=== PATIENT | female | born 1980 | race African-American/Black ===

== ENCOUNTER 2017-11-13 00:58 | Emergency (ER) | payer SELFPAY ==
[~2017-11-13] VITALS: Ht 165.1 cm; Wt 77.1 kg
[2017-11-13 01:22] VITALS: BP 146/95
--- NOTE | 2017-11-13 01:29 | ED CARDIAC/CP/PALPITATIONS ---
History of Present Illness General Chief Complaint: General Adult Stated Complaint: RIGHT SIDE RIBS PAIN Source: patient, family, old records Exam Limitations: no limitations Vital Signs & Intake/Output Vital Signs & Intake/Output Vital Signs Date Time Temp Pulse Resp B/P B/P Pulse O2 O2 Flow FiO2 Mean Ox Delivery Rate 11/13 0122 97.0 101 20 146/95 96 Room Air Allergies Uncoded Allergies: Allergy Other N Med Allergies N Triage Note: PT REPORTS SHE WAS BENDING DOWN TO [employer] AN OBJECT OFF OF THE FLOOR AND FELL INTO THE CORNER OF A TABLE STRIKING R RIBS. PT REPORTS PAIN IS CONSTANT AND WORSE WITH PALPATION AND MOVEMENT. DENIES OTHER INJURIES. Triage Nurses Notes Reviewed? yes : No Patient currently breastfeeds: No HPI: Patient states that on she lost her balance while bending over and fell and hit her right lower rib cage on the corner of a table. Patient denies hitting her head and there is no loss consciousness. Since then she has been having a sharp pain to her right lower rib cage that radiates around to her back. The pain increases with deep breath and movement. She denies any shortness of breath. There is no coughing. There is no fevers or chills. At its worst the pain is 8 out of 10. Past History Travel History Traveled to [place] past 21 day No Medical History Any Pertinent Medical History? see below for history Surgical History Surgical History: non-contributory Psychosocial History What is your primary language Wallisian Tobacco Use: Never used ETOH Use: denies use Illicit Drug Use: denies illicit drug use Family History Hx Contributory? No Review of Systems Review of Systems Constitutional: Reports: no symptoms. Respiratory: Reports: no symptoms. Cardiovascular: Reports: see HPI, chest pain. GI: Reports: no symptoms. Musculoskeletal: Reports: no symptoms. Neurological/Psychological: Reports: no symptoms. Immunologic/Allergic: Reports: no symptoms. Physical Exam Physical Exam General Appearance: well developed/nourished, alert, awake, anxious, mild distress Head: atraumatic, normal appearance Eyes: Bilateral: PERRL, EOMI. Neck: normal inspection, supple, full range of motion, no midline tenderness Respiratory: normal breath sounds, no respiratory distress, lungs clear, TENDER TO PALP RIGHT LOWER RIB CAGE Cardiovascular: regular rate/rhythm, normal peripheral pulses Gastrointestinal: normal bowel sounds, soft, non-tender, no organomegaly Neurologic/Psych: no motor/sensory deficits, awake, alert, oriented x 3, normal gait, normal mood/affect Core Measures ACS in differential dx? No CVA/TIA Diagnosis No Sepsis Present: No Sepsis Focused Exam Completed? No Progress Differential Diagnosis: costochondritis, pneumonia, pneumothorax, rib fracture Plan of Care: Orders Procedure Date/time Status XRY-RIBS UNILATERAL-RIGHT 11/13 127 Active Diagnostic Imaging: Viewed by Me: Radiology Read. Discussed w/RAD: Radiology Read. CXR Impression: PATIENT: MARTHA DEAN PRESENT AGE: 37 PATIENT ACCOUNT NO: [id number] : 76 LOCATION: [facility] ORDERING PHYSICIAN: Jem Montenegro MD SERVICE DATE: 11/13/17 EXAM TYPE: RAD - XRY-RIBS UNILATERAL-RIGHT EXAMINATION: XR RIBS, RIGHT CLINICAL INFORMATION: Pain status post injury COMPARISON: None TECHNIQUE: 3 views of the right ribs were obtained. PA view of the chest. FINDINGS: Lungs are clear. No consolidation, pneumothorax, or pleural effusion. The cardiomediastinal silhouette and pulmonary vasculature are normal. Osseous structures are unremarkable. Ribs are intact. No fractures are identified. IMPRESSION: Clear lungs. No displaced rib fractures. 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 < Electronically signed in Other Vendor System> SIGNED BY: Guru Baker MD 11/13/17218 Initial ED EKG: none Departure Departure Disposition: HOME OR SELF CARE Condition: Stable Clinical Impression Primary Impression: Rib injury Referrals: Patient Has No Primary Care Dr (PCP/Family) Additional Instructions: RETURN IF SYMPTOMS WORSEN, YOU DEVELOP SHORTNESS OF BREATH, COUGHING, FEVERS, OR ANY CONCERNS Departure Forms: Customer Survey General Discharge Information Critical Care Note Critical Care Note Critical Care Time: non-applicable
--- NOTE | 2017-11-13 02:19 | RADIOLOGY REPORT ---
EXAMINATION: XR RIBS, RIGHT CLINICAL INFORMATION: Pain status post injury COMPARISON: None TECHNIQUE: 3 views of the right ribs were obtained. PA view of the chest. FINDINGS: Lungs are clear. No consolidation, pneumothorax, or pleural effusion. The cardiomediastinal silhouette and pulmonary vasculature are normal. Osseous structures are unremarkable. Ribs are intact. No fractures are identified. IMPRESSION: Clear lungs. No displaced rib fractures.
== END 2017-11-13 02:35 ==
LOC: ERH 00:58
DX: S29.8XXA Other specified injuries of thorax, initial encounter (principal); W19.XXXA Unspecified fall, initial encounter; Y92.9 Unspecified place or not applicable; Y93.9 Activity, unspecified
CPT/HCPCS: 71100-RT